=== PATIENT | male | born 1990 | race Caucasian/White ===

== ENCOUNTER 2017-08-28 14:05 | Emergency (ER) | payer BC, MEDICAID ==
[2017-08-28] MEDS ORDERED: IBUPROFEN 600 MG TABLET PO ONE (14:26)
--- NOTE | 2017-08-28 14:29 | Emergency Department Record ---
History of Present Illness - General Chief Complaint: Ankle/Foot Injury Stated Complaint: R ANKLE INJURY Time Seen by Provider: 08/28/17 14:23 Source: Patient Mode of Arrival: Ambulatory Limitations: No limitations - History of Present Illness Initial Comments: 27 yo male presents with right ankle pain. Around 7am he was working out doing MMA. He landed awkwardly on his right ankle. He felt a pop and now has pain and swelling. No other injuries. MD Complaint: Ankle injury Onset/Timin -: Hour(s) Injury: Ankle: Right Type of Injury: Blunt, Inversion Place: Home Severity: Mild Improves With: Nothing Worsens With: Nothing Context: Jumping Associated Symptoms: Swelling, Ambulatory, Able to partially bear weight - Related Data Previous Rx's Medication Instructions Recorded Hydrocodone/Acetaminophen [Jasper 1 each PO TID #10 tablet 08/28/17 5-325 Tablet] Naproxen [Naprosyn] 500 mg PO BID #25 tablet 08/28/17 Allergies Allergy/AdvReac Type Severity Reaction Status Date / Time [facility]efaclor [[facility]] Allergy ANAPHYLAXIS Verified 08/28/17 14:23 pollen extracts Allergy RESPIRATORY Verified 08/28/17 14:23 IRRITATION Travel Screening - Travel/Exposure Within Last 30 Days Have you traveled within the last 30 days?: No - Travel/Exposure Within Last Year Have you traveled outside the [place] in the last year?: No - Additonal Travel Details Have you been exposed to anyone with a communicable illness?: No - Travel Symptoms Symptom Screening: None Review of Systems Constitutional: Denies: Chills, Fever, Night sweats, Weakness Eyes: Denies: Eye discharge ENT: Denies: Congestion, Throat pain Respiratory: Denies: Cough, Dyspnea Cardiovascular: Denies: Chest pain, Syncope Endocrine: Denies: Fatigue Gastrointestinal: Denies: Abdominal pain, Diarrhea, Nausea, Vomiting Genitourinary: Denies: Dysuria, Hematuria Musculoskeletal: Reports: As per HPI, Arthralgia Skin: Reports: Bruising, Change in color Neurological: Denies: Numbness, Vertigo, Weakness Psychiatric: Denies: Anxiety Hematological/Lymphatic: Denies: Blood Clots, Easy bleeding, Easy bruising, Swollen glands Past Medical History - SOCIAL HISTORY Smoking Status: Current every day smoker Alcohol Use: Occasional Drug Use: None - RESPIRATORY Hx Respiratory Disorders: Yes Hx Asthma: Yes (pre asthma) - CARDIOVASCULAR Hx Cardio Disorders: No - NEURO Hx Neuro Disorders: Yes Hx Seizures: Yes - GI Hx GI Disorders: No - Hx Genitourinary Disorders: No - ENDOCRINE Hx Endocrine Disorders: No - MUSCULOSKELETAL Hx Musculoskeletal Disorders: No - PSYCH Hx Psych Problems: Yes Hx Anxiety: Yes (divorce issues) Hx Depression: Yes - HEMATOLOGY/ONCOLOGY Hx Hematology/Oncology Disorders: No Family Medical History Any Significant Family History?: No Hx Depression: Mother, Brother/Sister Hx HTN: Mother Hx Resp Disorders: Mother Physical Exam - General General Appearance: Alert, Oriented x3, Cooperative, No acute distress Limitations: No limitations - Head Head exam: Atraumatic, Normal inspection - Eye Eye exam: Normal appearance. negative: Conjunctival injection, Scleral icterus - ENT ENT exam: Normal exam Ear exam: Normal external inspection Nasal Exam: Normal inspection Mouth exam: Normal external inspection - Neck Neck exam: Normal inspection - Cardiovascular Cardiovascular Exam: Regular rate, Normal rhythm - Rectal Rectal exam: Deferred - exam: Deferred - Extremities Extremities exam: Joint swelling, Normal capillary refill, Tenderness. negative : Normal inspection Image of Full Body: 1 - lateral ankle swellling, mild bruising, intact skin, foot non tender laterally Course Vital Signs 08/28/17 14:12 Temperature 97.8 F Pulse Rate 90 Respiratory 16 Rate Blood Pressure 146/74 Pulse Ox 98 - Reevaluation(s) Reevaluation #1: 08/28/17 15:07 XR read as no acute fracture. STS present Disposition Disposition: Discharge Clinical Impression: Ankle sprain Qualifiers: Encounter type: initial encounter Involved ligament of ankle: unspecified ligament Laterality: right Qualified Code(s): S93.401A - Sprain of unspecified ligament of right ankle, initial encounter Disposition: Home, Self-Care Condition: (1) Good Instructions: Ankle Sprain (ED) Additional Instructions: Use the boot and crutches for comfort and support Follow up in the next week Ice 3-4 times daily and elevate Use your crutches to minimize weight bearing Prescriptions: Hydrocodone/Acetaminophen [Jasper 5-325 Tablet] 1 each PO TID #10 tablet Naproxen [Naprosyn] 500 mg PO BID #25 tablet Forms: Patient Portal Access Time of Disposition: 15:08 Quality - Quality Measures Quality Measures: N/A - Blood Pressure Screening Does Patient Have Any of the Following: No Blood Pressure Classification: Hypertensive Reading Systolic Measurement: 146 Diastolic Measurement: 74 Screening for High Blood Pressure: < Pre-Hypertensive BP, F/U Documented > [ G8950] Pre-Hypertensive Follow-up Interventions: Referral to alternative/primary care provider.
--- NOTE | 2017-08-29 07:07 | RADIOLOGY REPORT ---
EXAM: ANKLE RIGHT 3 VIEWS HISTORY: INJURY. TECHNIQUE: Three views of the right ankle were performed. FINDINGS: No evidence of fracture or dislocation. There is soft tissues swelling. IMPRESSION: NO EVIDENCE OF FRACTURE. SOFT TISSUE SWELLING. J[facility]BER: [id number] [facility]
== END 2017-08-28 15:22 | disposition home or self-care (01) ==
LOC: ER 14:05
DX: S93.401A Sprain of unspecified ligament of right ankle, initial encounter (principal); X50.0XXA Overexertion from strenuous movement or load, initial encounter; Y92.009 Unspecified place in unspecified non-institutional (private) residence as the place of occurrence of the external cause
CPT/HCPCS: 99283

== ENCOUNTER 2017-11-02 12:38 | Emergency (ER) | payer MEDICAID ==
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
[2017-11-02 16:16] LABS: BASO % 0.6 % (0-6); EOS % 2.7 % (0-6); GRAN % 44.9 % (47-80); HEMATOCRIT 44.1 % (42.0-52.0); HEMOGLOBIN 14.7 gm/dl (14.0-18.0); LYMPH % 39.3 % (16-45); MEAN CELL VOLUME 94.2 fl (81-97); MEAN CORPUSCULAR HEMOGLOBIN 31.4 pg (27-33); MEAN CORPUSCULAR HGB CONC 33.3 g/dl (32-36); MEAN PLATELET VOLUME 9.2 fl (7.4-10.4); MONO % 12.5 % (0-9); PLATELET COUNT 280 K/uL (130-400); RED BLOOD COUNT 4.68 M/uL (4.40-5.70); RED CELL DISTRIBUTION WIDTH 13.2 % (11.5-14.5); WHITE BLOOD COUNT W/O DIFF 6.6 K/uL (4.2-12.2)
[2017-11-02 16:32] LABS: BLOOD UREA NITROGEN 7 mg/dL (6-20); CREATININE 0.7 mg/dL (0.7-1.2); EST GLOMERULAR FILTRATION RATE > 60 mL/min; GLUCOSE,RANDOM 85 mg/dL (74-109); PARTIAL THROMBOPLASTIN TIME 30.3 SECONDS (24.5-39.1); PROTHROMBIN TIME (PATIENT) 10.9 SECONDS (9.5-12.1)
[2017-11-02] MEDS ORDERED: ACETAMINOPHEN 1,000 MG/100 ML BTL IVPB ONE (17:01)
--- NOTE | 2017-11-03 09:27 | RADIOLOGY REPORT ---
EXAM: RIGHT ELBOW HISTORY: INJURY. TECHNIQUE: Four views of the right elbow were performed. FINDINGS: No evidence of fracture or dislocation. No lytic or blastic lesion. IMPRESSION: NEGATIVE RIGHT ELBOW EXAMINATION. [facility]BER: [id number] [facility]
--- NOTE | 2017-11-03 09:32 | CT SCAN REPORT ---
EXAM: CT OF THE BRAIN WITHOUT CONTRAST HISTORY: INJURY. TECHNIQUE: Sequential axial images were obtained from the foramen magnum to the vertex without contrast administration. FINDINGS: There is a partially calcified soft tissue mass in the medial right occipital region. Findings are suspicious for a neoplasm. No mass effect or midline shift is appreciated. The orbits, paranasal sinuses and mastoid air cells are normal. IMPRESSION: PARTIALLY CALCIFIED SOFT TISSUE MASS IN THE RIGHT OCCIPITAL REGION. THE EXACT MARGINS ARE INDISTINCT DUE TO THE LIMITATIONS OF TECHNIQUE. FINDINGS ARE SUSPICIOUS FOR NEOPLASM. FURTHER EVALUATION CONTRAST ENHANCED CT OR MRI IS RECOMMENDED. JOB NUMBER: [id number] [facility]D
--- NOTE | 2017-11-03 09:35 | CT SCAN REPORT ---
EXAM: CT OF THE NECK WITHOUT CONTRAST HISTORY: NECK PAIN. TECHNIQUE: Sequential axial images were obtained through the cervical spine without intravenous contrast administration. Sagittal and coronal reformatted images were performed. FINDINGS: There is normal vertebral body height and alignment. There is no evidence of fracture, subluxation, or perched facet. There is no lytic or blastic lesion. The prevertebral soft tissues are normal. IMPRESSION: NEGATIVE CT OF THE CERVICAL SPINE. JOB NUMBER: [id number] [facility]
--- NOTE | 2017-11-03 10:09 | CT SCAN REPORT ---
EXAM: EMERGENCY HEAD CT WITH CONTRAST HISTORY: PATIENT WITH RIGHT OCCIPITAL MASS SEEN ON THE NONCONTRAST CT FROM EARLIER TODAY, POST CONTRAST CT REQUESTED. TECHNIQUE: Axial CT scan of the head was performed following the intravenous administration of 50 ml of Omnipaque 300 as the IV contrast. Comparison: Noncontrast head CT performed earlier today on 11/02/17 at 2:22 p.m. The prior report is not as yet available within PACS, however. FINDINGS: There is again seen to be a partially calcified mass in the paramedian right occipital lobe. This appears essentially unchanged from the precontrast images. Very minimal if any appreciable contrast enhancement seen. Follow-up MRI with contrast would probably be more sensitive for further evaluation of this mass. The calcification and paramedian location would raise the possibility of a meningioma, but the lack of significant enhancement is less common for meningoma. There is a prominent focus of low attenuation in the region of the anterior limb of the left internal capsule extending to the adjacent head of the left caudate nucleus also present previously and likely representing an old area of infarction. No definite focal mass effect or midline shift evident. No depressed calvarial fracture evident. IMPRESSION: 1. PERSISTENT PARTIALLY CALCIFIED PARAMEDIAN RIGHT OCCIPITAL LOBE MASS WHICH DEMONSTRATES VERY MINIMAL IF ANY APPRECIABLE ENHANCEMENT AND APPEARS ESSENTIALLY UNCHANGED IN APPEARANCE FROM THE PRECONTRAST STUDY EARLIER TODAY. FOLLOW-UP MRI WITH CONTRAST SUGGESTED FOR FURTHER EVALUATION. 2. 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 JOB NUMBER: [id number] [facility]D
== END 2017-11-02 17:52 | disposition left against medical advice (07) ==
LOC: ER 12:38
DX: G89.11 Acute pain due to trauma (principal); R51 Headache; G93.9 Disorder of brain, unspecified; M54.2 Cervicalgia; M25.521 Pain in right elbow; F17.210 Nicotine dependence, cigarettes, uncomplicated; Y35.812A Legal intervention involving manhandling, bystander injured, initial encounter
CPT/HCPCS: 99284 ×2; 96365; 85025; 85730; 85610; 80048; 73080; 72125; 70450; 70460; Q9967